=== PATIENT | female | born 1985 | race Caucasian/White ===

== ENCOUNTER 2016-11-06 11:19 | Emergency (ER) | payer MEDICARE ==
[2016-11-06 11:49] VITALS: BP 140/92; O2SAT 97
[2016-11-06] MEDS ORDERED: TORAdol 30 mg Injection IM ONE (11:57)
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
[2016-11-06] MEDS ORDERED: TORAdol 30 mg Injection ONE (12:14)
[2016-11-06 12:58] VITALS: PULSE 100
--- NOTE | 2016-11-06 20:04 | XRAY ---
Indication: Pain. Comparison: None 3 nonweightbearing views of the left foot demonstrates tiny posterior heel spur and a cuboid accessory ossicle. No other bony, articular, or soft tissue abnormalities.
--- NOTE | 2016-11-06 20:04 | XRAY ---
Indication: Pain. Comparison: None 3 nonweightbearing views of the right foot demonstrates cuboid accessory ossicle. No other bony, articular, or soft tissue abnormalities.
== END 2016-11-06 12:55 | disposition home or self-care (01) ==
LOC: ED 11:19
DX: M79.672 Pain in left foot (principal); M79.671 Pain in right foot
CPT/HCPCS: 73630; 96372; 99284; J1885

== ENCOUNTER 2017-01-14 16:15 | Emergency (ER) | payer MEDICARE ==
[2017-01-14] MEDS ORDERED: MORPHINE SULFATE 2 MG INJ IV ONE ×2 (17:08→19:11)
[2017-01-14] MEDS ORDERED: Zofran 4 MG/2 ML VIAL IV ONE (17:08)
[2017-01-14] MEDS ORDERED: MORPHINE SULFATE 2 MG INJ ONE ×2 (17:14→19:15)
[2017-01-14] MEDS ORDERED: Zofran 4 MG/2 ML VIAL ONE (17:14)
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
[2017-01-14] MEDS ORDERED: Adacel Vial IM ONE ×2 (19:18→19:25)
[2017-01-14] MEDS ORDERED: BENADRYL 50 MG/ML IV ONE (19:18)
[2017-01-14] MEDS ORDERED: TORAdol 30 mg Injection IV ONE (19:18)
[2017-01-14] MEDS ORDERED: BENADRYL 50 MG/ML ONE (19:24)
[2017-01-14] MEDS ORDERED: Lactated Ringers 1,000 ML IV ONE (19:24)
[2017-01-14 19:27] LABS: BASOPHIL % 0.2 % (0.0-0.4); Eosinophil % 2.1 % (0.00-5.0); Lymphocytes % 42.3 % (24.0-44.0); Mean Cell Volume 93.3 fl (78-100); Mean Corpuscular Hemoglobin 31.2 pg (26-32); Mean Platelet Volume 12.2 fl (6-9.5); Monocytes % 7.4 % (0.0-12.0); Platelet Count 215 K/mm3 (150-450); Red Blood Count 5.09 M/mm3 (4.1-5.4); Red Cell Distribution Width 13.3 % (11.5-14.0); White Blood Count 8.5 K/mm3 (4.0-10.5)
[2017-01-14] MEDS ORDERED: Lactated Ringers 1,000 ML IV SCH (19:30)
[2017-01-14 19:43] LABS: ALBUMIN 4.2 g/dL (3.4-5.0); ALKALINE PHOSPHATASE 93 U/L (46-116); ANION GAP 16.7 MEQ/L (5-15); BLOOD UREA NITROGEN 13 mg/dL (9-20); CHLORIDE 105 mEq/L (98-107); Carbon Dioxide 23.9 mEq/L (21-32); ETHYL ALCOHOL < 0.010 % (0.00-0.01); Glucose 90 MG/DL (70-110); Potassium 4.3 mEq/L (3.5-5.1); SGOT/AST 23 U/L (15-37); SGPT/ALT 12 U/L (12-78); SODIUM 141 mEq/L (136-145); Total Protein 7.7 gm/dL (6.4-8.2)
[2017-01-14] MEDS ORDERED: TORAdol 30 mg Injection ONE (19:45)
[2017-01-14 19:51] VITALS: O2SAT 100
[2017-01-14 20:05] LABS: Bilirubin NEGATIVE (NEGATIVE); Blood NEGATIVE Ery/ul (0-5); COMPLETE URINE MICROSCOPIC? YES; Collection Type VOID; Glucose NEGATIVE (NEGATIVE); Leukocyte Esterase 2+ (NEGATIVE)
[2017-01-14 20:06] LABS: ADD URINE CULTURE? YES (NO); Bacteria MODERATE /HPF (NEGATIVE); Epithelial Cells MANY /HPF (FEW); Mucus SLIGHT /HPF (NEGATIVE); WBC 25-50 /HPF (0-5)
[2017-01-14] MEDS ORDERED: KEFLEX 500 MG PO ONE (20:20)
[2017-01-14] MEDS ORDERED: Duragesic 25MCG Patch TD ONE (20:22)
[2017-01-14] MEDS ORDERED: KEFLEX 500 MG ONE (20:33)
[2017-01-14 20:42] VITALS: BP 130/68; PULSE 70
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
== END 2017-01-14 20:44 | disposition home or self-care (01) ==
LOC: ED 16:15
DX: S13.4XXA Sprain of ligaments of cervical spine, initial encounter (principal); S33.5XXA Sprain of ligaments of lumbar spine, initial encounter; S80.12XA Contusion of left lower leg, initial encounter; V48.5XXA Car driver injured in noncollision transport accident in traffic accident, initial encounter; Z79.891 Long term (current) use of opiate analgesic; Z79.899 Other long term (current) drug therapy; R51 Headache; M54.2 Cervicalgia
CPT/HCPCS: 96374; 99284; 96375; 81000; 36415; 84703; 80307; 85025; 80053; 87086; 73590; 73521; 70450; 72125; 72128; 72131; G0481; 90471; 90715; 96376; 99283; J1200; J1885; J2270; J2405; A9270-GY